=== PATIENT | male | born 1950 | race Caucasian/White ===

== ENCOUNTER 2018-01-11 19:32 | Emergency (ER) | payer OTHER, MEDICARE ==
[2018-01-11] MEDS ORDERED: ASPIRIN 81 MG TABLET, CHEWABLE PO ONE (19:35)
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
--- NOTE | 2018-01-11 20:26 | RADIOLOGY REPORT (SQ) ---
EXAM DESCRIPTION: CHEST SINGLE VIEW COMPLETED DATE/TIME: 01/11/2018 8:12 pm REASON FOR STUDY: chest pain COMPARISON: None. EXAM PARAMETERS: NUMBER OF VIEWS: One view. TECHNIQUE: Single frontal radiographic view of the chest acquired. RADIATION DOSE: NA LIMITATIONS: None. FINDINGS: LUNGS AND PLEURA: No opacities, masses or pneumothorax. No pleural effusion. MEDIASTINUM AND HILAR STRUCTURES: No masses. Contour normal. HEART AND VASCULAR STRUCTURES: Heart normal in size. Normal vasculature. BONES: No acute findings. HARDWARE: None in the chest. OTHER: No other significant finding. IMPRESSION: NO ACUTE RADIOGRAPHIC FINDING IN THE CHEST. TECHNICAL DOCUMENTATION: JOB ID: [id number] [employer] ([employer])- All Rights Reserved Reading location - IP/workstation name: [email or web address]
[2018-01-11 22:11] LABS: ABSOLUTE EOSINOPHILS # (AUTO) 0.4 10^3/uL (0.0-0.6); ABSOLUTE LYMPHOCYTES (AUTO) 2.5 10^3/uL (0.5-4.7); ABSOLUTE MONOCYTES (AUTO) 0.6 10^3/uL (0.1-1.4); ABSOLUTE NEUT (AUTO) 1.4 10^3/uL (1.7-8.2); BASOPHILS % (AUTO) 0.9 % (0-2); EOSINOPHILS % (AUTO) 8.5 % (0-6); HEMATOCRIT 36.9 % (37.9-51.0); HEMOGLOBIN 12.4 g/dL (13.5-17.0); LYMPHOCYTES % (AUTO) 50.9 % (13-45); MEAN CORPUSCULAR HGB CONC 33.7 g/dL (32.0-36.0); MEAN CORPUSCULAR VOLUME 92 fl (80-97); MONOCYTES % (AUTO) 11.4 % (3-13); PLATELET COUNT 199 10^3/uL (150-450); RED BLOOD COUNT 4.01 10^6/uL (4.35-5.55); RED CELL DISTRIBUTION WIDTH 15.8 % (11.5-14.0); SEGMENTED NEUTROPHILS % (AUTO) 28.3 % (42-78); TOTAL CELLS COUNTED % (AUTO) 100 %; WHITE BLOOD COUNT 4.9 10^3/uL (4.0-10.5)
--- NOTE | 2018-01-11 22:11 | EKG REPORT ---
SEVERITY:- NORMAL ECG - SINUS RHYTHM : Confirmed by: Jonathan Wise 11-Jan-2018 22:10:54
[2018-01-11 22:35] LABS: ALANINE AMINOTRANSFERASE 93 U/L (21-72); ALKALINE PHOSPHATASE 118 U/L (38-126); ANION GAP 15 (5-19); ASPARTATE AMINO TRANSFERASE 133 U/L (17-59); BILIRUBIN,DIRECT 0.3 mg/dL (0.0-0.4); BILIRUBIN,TOTAL 0.4 mg/dL (0.2-1.3); BLOOD UREA NITROGEN 5 mg/dL (7-20); CALCIUM 8.8 mg/dL (8.4-10.2); CARBON DIOXIDE 22 mmol/L (22-30); CHLORIDE 107 mmol/L (98-107); CREATINE KINASE 262 U/L (55-170); GLUCOSE 138 mg/dL (75-110); POTASSIUM 3.6 mmol/L (3.6-5.0); SODIUM 143.8 mmol/L (137-145); TOTAL PROTEIN 7.7 g/dL (6.3-8.2)
[2018-01-11 22:43] LABS: CREATINE KINASE MB 5.65 ng/mL (<4.55)
[2018-01-11 22:44] LABS: TROPONIN I < 0.012 ng/mL
[2018-01-12 00:30] VITALS: BP 153/72
== END 2018-01-12 00:45 | disposition home or self-care (01) ==
LOC: EDBD 19:32 → ER 19:32
DX: R07.9 Chest pain, unspecified (principal); R06.02 Shortness of breath; F17.200 Nicotine dependence, unspecified, uncomplicated; I25.10 Atherosclerotic heart disease of native coronary artery without angina pectoris; I25.2 Old myocardial infarction
CPT/HCPCS: 36415; 71045; 80053; 82550; 82553; 84484; 85025; 93005; 93010; 99285

== ENCOUNTER 2018-10-03 19:06 | Emergency (ER) | payer OTHER, MEDICARE ==
[2018-10-03 19:18] VITALS: BP 150/82
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
[2018-10-03 20:11] LABS: ABSOLUTE EOSINOPHILS # (AUTO) 1.8 10^3/uL (0.0-0.6); ABSOLUTE LYMPHOCYTES (AUTO) 3.4 10^3/uL (0.5-4.7); ABSOLUTE MONOCYTES (AUTO) 0.6 10^3/uL (0.1-1.4); ABSOLUTE NEUT (AUTO) 1.9 10^3/uL (1.7-8.2); BASOPHILS % (AUTO) 0.6 % (0-2); EOSINOPHILS % (AUTO) 22.5 % (0-6); HEMOGLOBIN 13.5 g/dL (13.5-17.0); LYMPHOCYTES % (AUTO) 44.1 % (13-45); MEAN CORPUSCULAR HEMOGLOBIN 31.8 pg (27.0-33.4); MEAN CORPUSCULAR HGB CONC 33.8 g/dL (32.0-36.0); MEAN CORPUSCULAR VOLUME 94 fl (80-97); MONOCYTES % (AUTO) 8.3 % (3-13); PLATELET COUNT 301 10^3/uL (150-450); RED BLOOD COUNT 4.26 10^6/uL (4.35-5.55); RED CELL DISTRIBUTION WIDTH 15.4 % (11.5-14.0); SEGMENTED NEUTROPHILS % (AUTO) 24.5 % (42-78); TOTAL CELLS COUNTED % (AUTO) 100 %; WHITE BLOOD COUNT 7.8 10^3/uL (4.0-10.5)
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
[2018-10-03 20:26] LABS: ALANINE AMINOTRANSFERASE 72 U/L (21-72); ALBUMIN 4.5 g/dL (3.5-5.0); ALKALINE PHOSPHATASE 87 U/L (38-126); ANION GAP 11 (5-19); ASPARTATE AMINO TRANSFERASE 97 U/L (17-59); BILIRUBIN,DIRECT 0.2 mg/dL (0.0-0.4); BILIRUBIN,TOTAL 0.2 mg/dL (0.2-1.3); BLOOD UREA NITROGEN 6 mg/dL (7-20); CALCIUM 9.4 mg/dL (8.4-10.2); CARBON DIOXIDE 28 mmol/L (22-30); CHLORIDE 97 mmol/L (98-107); GLUCOSE 99 mg/dL (75-110); POTASSIUM 4.7 mmol/L (3.6-5.0); SODIUM 135.5 mmol/L (137-145); TOTAL PROTEIN 8.1 g/dL (6.3-8.2)
== END 2018-10-03 20:40 | disposition left against medical advice (07) ==
LOC: ER 19:06
DX: S12.090D Other displaced fracture of first cervical vertebra, subsequent encounter for fracture with routine healing (principal); Y04.8XXD Assault by other bodily force, subsequent encounter; F17.200 Nicotine dependence, unspecified, uncomplicated; J44.9 Chronic obstructive pulmonary disease, unspecified; I25.10 Atherosclerotic heart disease of native coronary artery without angina pectoris; I48.91 Unspecified atrial fibrillation; I50.9 Heart failure, unspecified; I11.0 Hypertensive heart disease with heart failure; I25.2 Old myocardial infarction
CPT/HCPCS: 99281; 36415; 85025; 80053; 72125; L0172

== ENCOUNTER 2018-10-16 22:45 | Emergency (ER) | payer OTHER, MEDICARE ==
--- NOTE | 2018-10-16 23:41 | ER Document Report ---
ED General - General Chief Complaint: Neck Pain >24hrs old Stated Complaint: NECK PAIN Time Seen by Provider: 10/16/18 23:28 Notes: Patient is a 67-year-old male who presents with neck pain. Patient was seen here approximately week ago and diagnosed with a C2 dens fracture. He eventually left AMA and did not want any further treatment. He has since returned saying that his neck still hurts and is having pain going into his upper back he has intermittent numbness and tingling into the left arm. He denies any new injuries or falls. He does drink alcohol on a daily basis. He has no other complaints at this time. No difficulty ambulating or walking. Patient actually has been walking since he got here without difficulty. TRAVEL OUTSIDE OF THE [place] IN LAST 30 DAYS: No - Related Data Allergies/Adverse Reactions: No Known Allergies Allergy (Verified 10/03/18 19:12) Past Medical History - Social History Smoking Status: Current Every Day Smoker Frequency of alcohol use: Heavy Drug Abuse: None Family History: Reviewed & Not Pertinent Patient has suicidal ideation: No Patient has homicidal ideation: No - Past Medical History Cardiac Medical History: Reports: Hx Atrial Fibrillation, Hx Congestive Heart Failure, Hx Coronary Artery Disease, Hx Heart Attack - x2, Hx Hypertension Pulmonary Medical History: Reports: Hx COPD, Hx Pneumonia Renal/ Medical History: Denies: Hx Peritoneal Dialysis GI Medical History: Reports: Hx Gastroesophageal Reflux Disease, Hx Ulcer Psychiatric Medical History: Denies: Hx Depression Past Surgical History: Reports: Hx Abdominal Surgery, Hx Cardiac Catheterization - Immunizations Immunizations up to date: Yes Hx Pneumococcal Vaccination: 05/24/14 Review of Systems - Review of Systems Notes: My Normal Review Basic REVIEW OF SYSTEMS: CONSTITUTIONAL : Denies fever, chills, or sweats. Denies recent illness. EENT: Denies eye, ear, throat, or mouth pain or symptoms. Denies nasal or sinus congestion. RESPIRATORY: Denies cough, cold, or chest congestion. Denies shortness of breath, difficulty breathing, or wheezing. GASTROINTESTINAL: Denies abdominal pain. Denies nausea, vomiting, or diarrhea. MUSCULOSKELETAL: Neck and upper back pain SKIN: Denies rash or skin lesions. NEUROLOGICAL: Denies altered mental status or loss of consciousness. Denies headache. Intermittent left arm weakness and numbness.. Denies problems with gait or speech. Denies sensory or motor loss. ALL OTHER SYSTEMS REVIEWED AND NEGATIVE. Physical Exam - Vital signs Vitals: Temp Pulse Resp BP Pulse Ox 98.2 F 76 20 135/80 H 96 10/16/18 23:07 10/16/18 23:07 10/16/18 23:07 10/16/18 23:07 10/16/18 23:07 - Notes Notes: General Appearance: Well nourished, alert, cooperative, no acute distress, no obvious discomfort. Patient admits to nursing staff that he drank alcohol earlier today however currently he is walking with normal gait, is not slurring his words, he is answering all questions appropriately. Vitals: reviewed, See vital signs table. Head: no swelling or tenderness to the head Eyes: PERRL, EOMI, Conjuctiva clear Mouth: No decreasd moisture Throat: No tonsillar inflammation, No airway obstruction, No lymphadenopathy Neck: Pain palpation over midline cervical spine. No obvious step-offs or deformities. Back: Pain to palpation into the upper thoracic spine. Remainder of thoracic and lumbar spine are nontender. Lungs: No wheezing, No rales, No rhonci, No accessory muscle use, good air exchange bilaterally. Heart: Normal rate, Regular rythm, No murmur, no rub Extremities: strength 5/5 in all extremities, good pulses in all extremities, no swelling or tenderness in the extremities, no edema. Skin: warm, dry, appropriate color, no rash Neuro: speech clear, oriented x 3, normal affect, responds appropriately to questions. Cranial nerves II through XII are intact. Good distal sensation in all extremities. Patient has normal gait. Good strength in lower and upper extremities. Course - Re-evaluation Re-evalutation: 10/17/18 01:39 Patient does continue to have unstable cervical spine fracture and therefore do es need transfer to us so that has neurosurgery. Placed a aspirin collar and the patient as soon as I evaluated him. I called the trauma line at [facility]. They initially said that they want to speak with the neurosurgeon to see if they take him on their service. I therefore tried to speak with the neurosurgeon however there is a new policy where the neurosurgeon is not called unless the patient has a immediate life-threatening injury that needs immediate surgery. I informed him that the patient does have an unstable cervical spine fracture which will need surgery. I am not convinced that they will do surgery immediately tonight. They therefore were unsure if they should wake the neurosurgeon and decide to call back to the trauma team. They therefore contacted trauma surgery and called us back and informed us that trauma surgery has accepted the patient. 10/17/18 03:46 I did reevaluate the patient when transport is at bedside. Patient continued to do well. No focal neurologic deficits at this time. He not have any new neurologic deficits. [place] collar was on him in appropriate position. Patient is stable for transport. Dictation of this chart was performed using voice recognition software; therefore, there may be some unintended grammatical errors. - Vital Signs Vital signs: Temp Pulse Resp BP Pulse Ox 98.3 F 82 16 94/52 L 94 10/17/18 03:33 10/17/18 03:33 10/17/18 03:33 10/17/18 03:33 10/17/18 03:33 Discharge - Discharge Clinical Impression: Cervical spine fracture Qualifiers: Encounter type: initial encounter Cervical vertebra fracture level: C1 Fracture type: closed Fracture morphology: unspecified fracture morphology Fracture alignment: nondisplaced Qualified Code(s): S12.001A - Unspecified nondisplaced fracture of first cervical vertebra, initial encounter for closed fracture Condition: Stable Disposition: [facility]
--- NOTE | 2018-10-17 00:35 | RADIOLOGY REPORT (SQ) ---
EXAM DESCRIPTION: CT CERVICAL SPINE WITHOUT IV CONTRAST COMPLETED DATE/TME: 10/16/2018 23:38 CLINICAL HISTORY: 67 years, Male, trauma COMPARISON: Prior CT from 10/03/2018 TECHNIQUE: Noncontrast CT of the cervical spine was performed. Coronal and sagittal reformations were created. Images stored on PACS. All CT scanners at this facility use dose modulation, iterative reconstruction, and/or weight based dosing when appropriate to reduce radiation dose to as low as reasonably achievable (ALARA). [facility]: Dose Right [facility]: CareDose [facility]: Dose Right [facility]: Teradose 4D [facility]: [place] [employer] LIMITATIONS: None. FINDINGS: Limited evaluation of brain parenchyma reveals no suspicious finding. Occipital condyles are normal. The right lateral masses of C1 appears slightly laterally displaced relative to the C2 lateral mass. This is as a result of a comminuted fracture involving the anterior arch of C1. This appears similar in configuration to the previous examination dated 10/03/2018. In addition, there is a transversely oriented fracture through the base of the dens with associated slight superior displacement of the dens fracture fragment. Craniocervical alignment is otherwise maintained. Again visualized is grade 1 anterolisthesis of C3 upon C4 and C4 upon C5, unchanged. Superimposed mild/moderate multilevel cervical spondylosis is evident, designated by multilevel intervertebral disc space narrowing and facet arthropathy. This appears similar to the previous exam dated 10/03/2018. There is also mild asymmetric widening of the left C4-C5 facet joint, also similar to the previous examination dated 10/03/2018. There is partially imaged severe compression deformity involving the T3 vertebral body which will be discussed on the dedicated CT thoracic spine report. No additional fractures are identified. Limited evaluation of the lung apices reveals mild upper zone predominant emphysematous change. Paravertebral soft tissues show no suspicious abnormality. IMPRESSION: Unchanged appearance of transversely oriented fracture involving the base of the odontoid (type II odontoid fracture) with additional comminuted fracture involving the anterior arch of C1. Unchanged asymmetric widening of the left C4-C5 facet joint, raising the possibility of ligamentous injury at this location. Mild to moderate multilevel cervical spondylosis with grade 1 anterolisthesis of C3 upon C4 and C4 upon C5. TECHNICAL DOCUMENTATION: Quality ID # 436: Final reports with documentation of one or more dose reduction techniques (e.g., Automated exposure control, adjustment of the mA and/or kV according to patient size, use of iterative reconstruction technique) copyright 2010 [employer]- All Rights Reserved
--- NOTE | 2018-10-17 00:35 | RADIOLOGY REPORT (SQ) ---
EXAM DESCRIPTION: CT THORACIC SPINE WITHOUT IV CONTRAST COMPLETED DATE/TME: 10/16/2018 23:38 CLINICAL HISTORY: 67 years, Male, trauma COMPARISON: None. TECHNIQUE: Axial CT images of the thoracic spine were obtained without contrast. Sagittal and coronal reformats were performed. [facility] [id number] Images stored on PACS. All CT scanners at this facility use dose modulation, iterative reconstruction, and/or weight based dosing when appropriate to reduce radiation dose to as low as reasonably achievable (ALARA). [facility]: Dose Right [facility]: CareDose [facility]: Dose Right [facility]: Teradose 4D [facility]: [employer] LIMITATIONS: None. FINDINGS: There is a severe and chronic compression deformity of T3 with kyphosis at this level. There is approximately 3 mm of retropulsion at T3. The remainder of the vertebral heights are maintained. There is no acute fracture or subluxation. The prevertebral soft tissues are normal. Old healed left-sided rib fractures are noted. There are atherosclerotic calcifications of the aorta without evidence of aneurysm. The visualized portions of the lungs are clear. IMPRESSION: No acute fracture or subluxation involving the thoracic spine. Chronic appearing severe compression fracture of T3 with approximately 3 mm of retropulsion with kyphosis at this level. TECHNICAL DOCUMENTATION: Quality ID # 436: Final reports with documentation of one or more dose reduction techniques (e.g., Automated exposure control, adjustment of the mA and/or kV according to patient size, use of iterative reconstruction technique) copyright 2010 [employer]- All Rights Reserved
[2018-10-17] MEDS ORDERED: NICOTINE 21 MG/24 HR PATCH.TD24 TD ONE (01:13)
[2018-10-17 03:34] VITALS: BP 94/52
== END 2018-10-17 03:47 | disposition short-term general hospital (02) ==
LOC: ER 22:45
DX: S12.001A Unspecified nondisplaced fracture of first cervical vertebra, initial encounter for closed fracture (principal); R20.0 Anesthesia of skin; F17.200 Nicotine dependence, unspecified, uncomplicated; X58.XXXA Exposure to other specified factors, initial encounter; I48.91 Unspecified atrial fibrillation; J44.9 Chronic obstructive pulmonary disease, unspecified; I50.9 Heart failure, unspecified; I11.0 Hypertensive heart disease with heart failure; I25.2 Old myocardial infarction
CPT/HCPCS: 72125; 99284; 72128; L0172

== ENCOUNTER 2018-10-26 17:11 | Emergency (ER) | payer OTHER, MEDICARE ==
[2018-10-26] MEDS ORDERED: ASPIRIN 81 MG TABLET, CHEWABLE PO ONE (17:21)
[2018-10-26 17:58] LABS: ABSOLUTE BASOPHILS # (AUTO) 0.1 10^3/uL (0.0-0.2); ABSOLUTE EOSINOPHILS # (AUTO) 1.1 10^3/uL (0.0-0.6); ABSOLUTE LYMPHOCYTES (AUTO) 2.2 10^3/uL (0.5-4.7); ABSOLUTE MONOCYTES (AUTO) 0.7 10^3/uL (0.1-1.4); ABSOLUTE NEUT (AUTO) 2.1 10^3/uL (1.7-8.2); BASOPHILS % (AUTO) 0.8 % (0-2); HEMATOCRIT 36.6 % (37.9-51.0); HEMOGLOBIN 12.5 g/dL (13.5-17.0); LYMPHOCYTES % (AUTO) 35.1 % (13-45); MEAN CORPUSCULAR HEMOGLOBIN 32.7 pg (27.0-33.4); MEAN CORPUSCULAR HGB CONC 34.1 g/dL (32.0-36.0); MEAN CORPUSCULAR VOLUME 96 fl (80-97); MONOCYTES % (AUTO) 12.1 % (3-13); PLATELET COUNT 245 10^3/uL (150-450); RED BLOOD COUNT 3.81 10^6/uL (4.35-5.55); RED CELL DISTRIBUTION WIDTH 14.7 % (11.5-14.0); TOTAL CELLS COUNTED % (AUTO) 100 %; WHITE BLOOD COUNT 6.2 10^3/uL (4.0-10.5)
--- NOTE | 2018-10-26 18:01 | RADIOLOGY REPORT (SQ) ---
EXAM DESCRIPTION: CHEST SINGLE VIEW COMPLETED DATE/TIME: 10/26/2018 5:31 pm REASON FOR STUDY: bed 17 cp COMPARISON: 01/11/2018 EXAM PARAMETERS: NUMBER OF VIEWS: One view. TECHNIQUE: Single frontal radiographic view of the chest acquired. RADIATION DOSE: NA LIMITATIONS: None. FINDINGS: LUNGS AND PLEURA: No opacities, masses or pneumothorax. No pleural effusion. MEDIASTINUM AND HILAR STRUCTURES: No masses. Contour normal. HEART AND VASCULAR STRUCTURES: Heart normal in size. Normal vasculature. BONES: No acute findings. HARDWARE: None in the chest. OTHER: Possible subdiaphragmatic air on the right. More likely colonic interposition. . IMPRESSION: Possible free intraperitoneal air. COMMENT: Pertinent findings on the imaging study reported as a CRITICAL RESULT to ER PROVIDER at17 :54 on 10/26/2018. Category of Critical Result: Possible free air RECOMMENDATIONS: Right side up decubitus abdominal film. Or CT scan if that is in the workup. TECHNICAL DOCUMENTATION: JOB ID: [id number] [employer]- All Rights Reserved Reading location - IP/workstation name: [email or web address]
--- NOTE | 2018-10-26 18:08 | ER Document Report ---
ED General - General Chief Complaint: Chest Pain Stated Complaint: CHEST PAIN Time Seen by Provider: 10/26/18 18:00 Mode of Arrival: Medic Information source: Patient, Emergency Med Personnel, [facility] Records Notes: 67-year-old male presents with complaint of left-sided chest pain that started 1 hour prior to arrival while at rest. Patient describes the pain as sharp, stabbing and not associated with nausea, diaphoresis, dizziness or shortness of breath. Reports that he has been noncompliant with his medications because "I just do not feel like taking my meds". Patient does admit to drinking 240 ounce beers today. States that he usually drinks approximately 5 of these beers daily. Radiology called after chest x-ray showed possible free air. Patient denies fever, chills, abdominal pain, nausea, vomiting. TRAVEL OUTSIDE OF THE [place] IN LAST 30 DAYS: No - HPI Onset: Just prior to arrival Onset/Duration: Sudden Quality of pain: Sharp Severity: Mild Associated symptoms: Chest pain. denies: Body/muscle aches, Nonproductive cough, Productive cough, Headache, Nausea, Vomiting, Shortness of breath, Weakness Exacerbated by: Denies Relieved by: Denies Similar symptoms previously: Yes Recently seen / treated by doctor: No - Related Data Allergies/Adverse Reactions: No Known Allergies Allergy (Verified 10/03/18 19:12) Past Medical History - General Information source: Patient - Social History Smoking Status: Current Every Day Smoker Cigarette use (# per day): Yes - 10 Chew tobacco use (# tins/day): No Smoking Education Provided: Yes - Smoking cessation counseling was provided for 4 minutes at the bedside Frequency of alcohol use: Heavy Drug Abuse: Cocaine, Marijuana Lives with: Family Family History: Reviewed & Not Pertinent Patient has suicidal ideation: No Patient has homicidal ideation: No - Past Medical History Cardiac Medical History: Reports: Hx Atrial Fibrillation, Hx Congestive Heart Failure, Hx Coronary Artery Disease, Hx Heart Attack - x2, Hx Hypertension Pulmonary Medical History: Reports: Hx COPD, Hx Pneumonia Renal/ Medical History: Denies: Hx Peritoneal Dialysis GI Medical History: Reports: Hx Gastroesophageal Reflux Disease, Hx Ulcer Psychiatric Medical History: Denies: Hx Depression Past Surgical History: Reports: Hx Abdominal Surgery, Hx Cardiac Catheterization - Immunizations Immunizations up to date: Yes Hx Pneumococcal Vaccination: 05/24/14 Review of Systems - Review of Systems Notes: REVIEW OF SYSTEMS: CONSTITUTIONAL : Denies fever, chills, or sweats. Denies recent illness. Denies weight loss, recent hospitalizations. EENT: Denies visual changes, eye pain. Denies sore throat, oral lesions, difficulty swallowing. CARDIOVASCULAR: + chest pain. Denies palpitations. Denies lower extremity e maddie. RESPIRATORY: Denies cough. Denies shortness of breath, wheezing. GASTROINTESTINAL: Denies abdominal pain or distention. Denies nausea, vomiting, or diarrhea. Denies blood in vomitus, stools, or per rectum. Denies black, tarry stools. Denies constipation. GENITOURINARY: Denies difficulty urinating, painful urination, frequency, blood in urine, testicular pain or penile discharge. MUSCULOSKELETAL: Denies back or neck pain or stiffness. Denies joint pain or swelling. SKIN: Denies rash, lesions or sores. HEMATOLOGIC : Denies easy bruising or bleeding. LYMPHATIC: Denies swollen glands. NEUROLOGICAL: Denies confusion or altered mental status. Denies loss of consciousness. Denies dizziness or lightheadedness. Denies headache. Denies weakness or paralysis. Denies problems difficulty with ambulation, slurred speech. Denies sensory loss, numbness, or tingling. Denies seizures. PSYCHIATRIC: Denies anxiety or stress. Denies depression, suicidal ideation, or Physical Exam - Vital signs Vitals: Resp 17 10/26/18 17:30 Course - Re-evaluation Re-evalutation: 10/26/18 21:15 Laboratory 10/26/18 10/26/18 10/26/18 17:38 17:38 17:38 WBC 6.2 RBC 3.81 L Hgb 12.5 L Hct 36.6 L MCV 96 MCH 32.7 MCHC 34.1 RDW 14.7 H Plt Count 245 Seg Neutrophils % 34.0 L Lymphocytes % 35.1 Monocytes % 12.1 Eosinophils % 18.0 H Basophils % 0.8 Absolute Neutrophils 2.1 Absolute Lymphocytes 2.2 Absolute Monocytes 0.7 Absolute Eosinophils 1.1 H Absolute Basophils 0.1 Sodium 135.9 L Potassium 4.1 Chloride 102 Carbon Dioxide 20 L Anion Gap 14 BUN 5 L Creatinine 0.64 Est GFR ( Amer) > 60 Est GFR (Non-Af Amer) > 60 Glucose 107 Lactic Acid Calcium 9.0 Total Bilirubin 0.3 Direct Bilirubin 0.2 Neonat Total Bilirubin Not Reportable Neonat Direct Bilirubin Not Reportable Neonat Indirect Bili Not Reportable AST 75 H ALT 63 Alkaline Phosphatase 94 Creatine Kinase 152 CK-MB (CK-2) 4.95 H Troponin I < 0.012 NT-Pro-B Natriuret Pep Total Protein 7.5 Albumin 4.2 Lipase Serum Alcohol 10/26/18 10/26/18 10/26/18 17:38 17:38 18:40 WBC RBC Hgb Hct MCV MCH MCHC RDW Plt Count Seg Neutrophils % Lymphocytes % Monocytes % Eosinophils % Basophils % Absolute Neutrophils Absolute Lymphocytes Absolute Monocytes Absolute Eosinophils Absolute Basophils Sodium Potassium Chloride Carbon Dioxide Anion Gap BUN Creatinine Est GFR ( Amer) Est GFR (Non-Af Amer) Glucose Lactic Acid 1.3 Calcium Total Bilirubin Direct Bilirubin Neonat Total Bilirubin Neonat Direct Bilirubin Neonat Indirect Bili AST ALT Alkaline Phosphatase Creatine Kinase CK-MB (CK-2) Troponin I NT-Pro-B Natriuret Pep 201 Total Protein Albumin Lipase 297.5 Serum Alcohol 206 10/26/18 20:20 WBC RBC Hgb Hct MCV MCH MCHC RDW Plt Count Seg Neutrophils % Lymphocytes % Monocytes % Eosinophils % Basophils % Absolute Neutrophils Absolute Lymphocytes Absolute Monocytes Absolute Eosinophils Absolute Basophils Sodium Potassium Chloride Carbon Dioxide Anion Gap BUN Creatinine Est GFR ( Amer) Est GFR (Non-Af Amer) Glucose Lactic Acid Calcium Total Bilirubin Direct Bilirubin Neonat Total Bilirubin Neonat Direct Bilirubin Neonat Indirect Bili AST ALT Alkaline Phosphatase Creatine Kinase CK-MB (CK-2) Troponin I < 0.012 NT-Pro-B Natriuret Pep Total Protein Albumin Lipase Serum Alcohol Chest X-Ray 10/26/18 17:21 IMPRESSION: Possible free intraperitoneal air. Abdomen/Pelvis CT 10/26/18 17:55 IMPRESSION: There are no acute findings in the chest. IMPRESSION: There is significant gaseous distention of the stomach. There is large amount of bowel gas. There is no free air. There is cholelithiasis. No acute finding in the abdomen or pelvis. Chest CT 10/26/18 18:02 IMPRESSION: There are no acute findings in the chest. IMPRESSION: There is significant gaseous distention of the stomach. There is large amount of bowel gas. There is no free air. There is cholelithiasis. No acute finding in the abdomen or pelvis. Temp Pulse Resp BP Pulse Ox 98.4 F 15 158/87 H 98 10/26/18 20:34 10/26/18 21:01 10/26/18 21:01 10/26/18 21:01 10/26/18 21:46 67-year-old male presents with left-sided chest pain that occurred just prior to arrival. Patient is obviously intoxicated. Vital signs reviewed and patient is hypertensive but afebrile and not hypoxic. He does not appear toxic or de hydrated. He is in no acute distress. Chest x-ray was obtained and radiologist contacted us to inform us that there is possibly free air. Abdominal exam is benign. CT of the chest and abdomen were obtained and showed gaseous distention, cholelithiasis and no free air. On reevaluation patient is resting comfortably. CBC, CMP, cardiac enzymes including delta troponin are within normal limits. Discussed findings with the patient who has an alcohol level of 206. Patient will be discharged after he ambulates, is able to tolerate p.o. Patient was evaluated and treated as appropriate for the patient's presenting symptoms and complaint, with consideration of any critical or life threatening conditions that may be associated with their obtained history and exam as noted above. All results were discussed with patient . Patient provided the opportunity to ask questions, and express concerns. Patient was educated on treatments based on their presumed diagnosis as noted above. At this time we will discharge the patient with return precautions and follow-up recommendations. Verbal discharge instructions given a the bedside. Medication warnings reviewed. Patient is in agreement with this plan and has verbalized understanding of return precautions. After careful consideration I feel that that patient can be safely discharged from the emergency department, they were advised to followup with a primary care physician in 2-3 days. Dictation on this chart was performed using voice recognition software and may result in unintended grammatical, spelling, syntax or errors. - Vital Signs Vital signs: Temp Pulse Resp BP Pulse Ox 98.4 F 15 158/87 H 98 10/26/18 20:34 10/26/18 21:01 10/26/18 21:01 10/26/18 21:01 - Laboratory Result Diagrams: 10/26/18 17:38 10/26/18 17:38 Laboratory results interpreted by me: 10/26/18 10/26/18 10/26/18 17:38 17:38 17:38 RBC 3.81 L Hgb 12.5 L Hct 36.6 L RDW 14.7 H Seg Neutrophils % 34.0 L Eosinophils % 18.0 H Absolute Eosinophils 1.1 H Sodium 135.9 L Carbon Dioxide 20 L BUN 5 L AST 75 H CK-MB (CK-2) 4.95 H - Diagnostic Test Radiology reviewed: Image reviewed, Reports reviewed - EKG Interpretation by Me EKG shows normal: Sinus rhythm Rate: Normal Rhythm: NSR When compared to previous EKG there are: No significant change Discharge - Discharge Clinical Impression: Alcoholism, Asymptomatic gallstones, History of cervical fracture Chest pain Qualifiers: Chest pain type: unspecified Qualified Code(s): R07.9 - Chest pain, unspecified Condition: Good Disposition: HOME, SELF-CARE Instructions: Acute Alcohol Intoxication ([facility]), Chest Pain of Unclear Cause ([facility]), Gallbladder Disease ([facility]) Additional Instructions: You were seen today for chest pain. The exact cause of your pain is unclear. However, based on your cardiac enzyme testing, chest x-ray, and EKG it does not appear that it is from an immediately life-threatening cause at this time. Although your testing here is normal is critical that you follow-up with your primary care physician for continued evaluation of this chest pain and possible stress testing. I recommended you see your physician within the next 24-48 hours to be evaluated for consideration of a stress test. Please return to emergency department immediately if you have worsening of your chest pain, shortness of breath, vomiting, become unable to exert yourself due to pain or difficulty breathing, you pass out, or have any pain that radiates into your arms, jaw, or back. Please also return if you have any additional symptoms that are concerning to you. Forms: Elevated Blood Pressure
[2018-10-26 18:15] LABS: ALANINE AMINOTRANSFERASE 63 U/L (21-72); ALBUMIN 4.2 g/dL (3.5-5.0); ALKALINE PHOSPHATASE 94 U/L (38-126); ANION GAP 14 (5-19); ASPARTATE AMINO TRANSFERASE 75 U/L (17-59); BILIRUBIN,DIRECT 0.2 mg/dL (0.0-0.4); BILIRUBIN,TOTAL 0.3 mg/dL (0.2-1.3); BLOOD UREA NITROGEN 5 mg/dL (7-20); CARBON DIOXIDE 20 mmol/L (22-30); CHLORIDE 102 mmol/L (98-107); CREATINE KINASE 152 U/L (55-170); GLUCOSE 107 mg/dL (75-110); POTASSIUM 4.1 mmol/L (3.6-5.0); SODIUM 135.9 mmol/L (137-145); TOTAL PROTEIN 7.5 g/dL (6.3-8.2)
--- NOTE | 2018-10-26 18:18 | EKG REPORT ---
SEVERITY:- NORMAL ECG - SINUS RHYTHM : Confirmed by: Nader Schaefer MD 26-Oct-2018 18:17:56
[2018-10-26 18:27] LABS: CREATINE KINASE MB 4.95 ng/mL (<4.55); TROPONIN I < 0.012 ng/mL
[2018-10-26 18:36] LABS: LIPASE 297.5 U/L (23-300)
--- NOTE | 2018-10-26 18:53 | RADIOLOGY REPORT (SQ) ---
EXAM DESCRIPTION: CT ABD/PELVIS WITH IV ONLY; CT CHEST WITH COMPLETED DATE/TIME: 10/26/2018 6:23 pm REASON FOR STUDY: ? free air; chest pain CONTRAST TYPE AND DOSE: contrast/concentration: Isovue 350.00 mg/ml; Total Contrast Delivered: 100.0 ml; Total Saline Delivered: 72.0 ml RENAL FUNCTION: Testing waived by the emergency room physician COMPARISON: Chest x-ray 10/26/2018 TECHNIQUE: CT scan of the chest performed using helical scanning technique with dynamic intravenous contrast injection. Images reviewed with lung, soft tissue and bone windows. Reconstructed coronal a nd sagittal MPR images reviewed. All images stored on PACS. All CT scanners at this facility use dose modulation, iterative reconstruction, and/or weight based d osing when appropriate to reduce radiation dose to as low as reasonably achievable (ALARA). [facility]: Dose Right [facility]: CareDose [facility]: Dose Right [facility]: Teradose 4D [facility]: [employer] RADIATION DOSE: CT Rad equipment meets quality standard of care and radiation dose reduction techniq ues were employed. CTDIvol: 5.8 - 7.9 mGy. DLP: 846 mGy-cm. . LIMITATIONS: None. FINDINGS: AXILLAE: No adenopathy. CHEST WALL: No masses. No subcutaneous air. LUNGS: No nodules or masses. No pneumothorax. No infiltrates. PLEURA: No effusions. No calcifications. THYROID: No masses or significant asymmetry. HILAR AND MEDIASTINAL STRUCTURES: No identified masses or abnormal nodes. AORTA AND GREAT VESSELS: No aneurysm. No dissection. PULMONARY ARTERIES: No identified pulmonary emboli. Study not optimized for the pulmonary arteries. HEART: No pericardial effusion. HARDWARE AND LIFELINES: None. BONES: Severe compression changes at T3 are not acute. OTHER: No other significant finding. IMPRESSION: There are no acute findings in the chest. COMPARISON: None. RADIATION DOSE: CT Rad equipment meets quality standard of care and radiation dose reduction techniq ues were employed. CTDIvol: 5.8 - 7.9 mGy. DLP: 846 mGy-cm. mGy. TECHNIQUE: CT scan of the abdomen and pelvis performed with intravenous and oral contrast using bee rebekah scanning technique with dynamic intravenous contrast injection. Images reviewed with lung, soft tissue and bone windows. Reconstructed coronal and sagittal MPR images reviewed. Delayed images for evaluation of the urinary system also acquired and evaluated. All images stored on PACS. All CT scanners at this facility use dose modulation, iterative reconstruction, and/or weight based d osing when appropriate to reduce radiation dose to as low as reasonably achievable (ALARA). [facility]: Dose Right [facility]: SureCare [facility]: Dose Right [facility]: Teradose 4D [facility]: [employer] FINDINGS: LIVER: Normal size. No masses. No dilated ducts. SPLEEN: Normal size. No focal lesions. PANCREAS: No masses. No significant calcifications. No adjacent inflammation or peripancreatic flui d collections. Pancreatic duct not dilated. GALLBLADDER: Contracted gallbladder with multiple small stones. ADRENAL GLANDS: No significant masses or asymmetry. RIGHT KIDNEY AND URETER: No solid masses. No significant calcifications. No hydronephrosis or hyd roureter. LEFT KIDNEY AND URETER: No solid masses. No significant calcifications. No hydronephrosis or hydr oureter. AORTA AND VESSELS: No aneurysm. No dissection. Considerable atherosclerosis including atheroscleros is involving the superior mesenteric artery. RETROPERITONEUM: No retroperitoneal adenopathy, hemorrhage or masses. LARGE AND SMALL BOWEL: Gaseous distention of the stomach. There is large amount of bowel gas present . No obvious bowel mass. APPENDIX: Not identified. ABDOMINAL WALL: No hernia or masses. PERITONEAL CAVITY: No free air. No free fluid. No peritoneal implants or masses. PELVIS: No mass or free fluid. Normal bladder. BONES: Posterior rods at L4-5. No acute osseous finding. OTHER: No other significant finding. IMPRESSION: There is significant gaseous distention of the stomach. There is large amount of bowel gas. There is no free air. There is cholelithiasis. No acute finding in the abdomen or pelvis. TECHNICAL DOCUMENTATION: JOB ID: [id number] Quality ID # [id number]: Final reports with documentation of one or more dose reduction techniques (e.g., Au tomated exposure control, adjustment of the mA and/or kV according to patient size, use of iterative reconstruction technique) 2010 [employer]- All Rights Reserved Reading location - IP/workstation name: [email or web address]
--- NOTE | 2018-10-26 18:53 | RADIOLOGY REPORT (SQ) ---
EXAM DESCRIPTION: CT ABD/PELVIS WITH IV ONLY; CT CHEST WITH COMPLETED DATE/TIME: 10/26/2018 6:23 pm REASON FOR STUDY: ? free air; chest pain CONTRAST TYPE AND DOSE: contrast/concentration: Isovue 350.00 mg/ml; Total Contrast Delivered: 100.0 ml; Total Saline Delivered: 72.0 ml RENAL FUNCTION: Testing waived by the emergency room physician COMPARISON: Chest x-ray 10/26/2018 TECHNIQUE: CT scan of the chest performed using helical scanning technique with dynamic intravenous contrast injection. Images reviewed with lung, soft tissue and bone windows. Reconstructed coronal a nd sagittal MPR images reviewed. All images stored on PACS. All CT scanners at this facility use dose modulation, iterative reconstruction, and/or weight based d osing when appropriate to reduce radiation dose to as low as reasonably achievable (ALARA). [facility]: Dose Right [facility]: CareDose [facility]: Dose Right [facility]: Teradose 4D [facility]: [employer] RADIATION DOSE: CT Rad equipment meets quality standard of care and radiation dose reduction techniq ues were employed. CTDIvol: 5.8 - 7.9 mGy. DLP: 846 mGy-cm. . LIMITATIONS: None. FINDINGS: AXILLAE: No adenopathy. CHEST WALL: No masses. No subcutaneous air. LUNGS: No nodules or masses. No pneumothorax. No infiltrates. PLEURA: No effusions. No calcifications. THYROID: No masses or significant asymmetry. HILAR AND MEDIASTINAL STRUCTURES: No identified masses or abnormal nodes. AORTA AND GREAT VESSELS: No aneurysm. No dissection. PULMONARY ARTERIES: No identified pulmonary emboli. Study not optimized for the pulmonary arteries. HEART: No pericardial effusion. HARDWARE AND LIFELINES: None. BONES: Severe compression changes at T3 are not acute. OTHER: No other significant finding. IMPRESSION: There are no acute findings in the chest. COMPARISON: None. RADIATION DOSE: CT Rad equipment meets quality standard of care and radiation dose reduction techniq ues were employed. CTDIvol: 5.8 - 7.9 mGy. DLP: 846 mGy-cm. mGy. TECHNIQUE: CT scan of the abdomen and pelvis performed with intravenous and oral contrast using bee rebekah scanning technique with dynamic intravenous contrast injection. Images reviewed with lung, soft tissue and bone windows. Reconstructed coronal and sagittal MPR images reviewed. Delayed images for evaluation of the urinary system also acquired and evaluated. All images stored on PACS. All CT scanners at this facility use dose modulation, iterative reconstruction, and/or weight based d osing when appropriate to reduce radiation dose to as low as reasonably achievable (ALARA). [facility]: Dose Right [facility]: SureCare [facility]: Dose Right [facility]: Teradose 4D [facility]: [employer] FINDINGS: LIVER: Normal size. No masses. No dilated ducts. SPLEEN: Normal size. No focal lesions. PANCREAS: No masses. No significant calcifications. No adjacent inflammation or peripancreatic flui d collections. Pancreatic duct not dilated. GALLBLADDER: Contracted gallbladder with multiple small stones. ADRENAL GLANDS: No significant masses or asymmetry. RIGHT KIDNEY AND URETER: No solid masses. No significant calcifications. No hydronephrosis or hyd roureter. LEFT KIDNEY AND URETER: No solid masses. No significant calcifications. No hydronephrosis or hydr oureter. AORTA AND VESSELS: No aneurysm. No dissection. Considerable atherosclerosis including atheroscleros is involving the superior mesenteric artery. RETROPERITONEUM: No retroperitoneal adenopathy, hemorrhage or masses. LARGE AND SMALL BOWEL: Gaseous distention of the stomach. There is large amount of bowel gas present . No obvious bowel mass. APPENDIX: Not identified. ABDOMINAL WALL: No hernia or masses. PERITONEAL CAVITY: No free air. No free fluid. No peritoneal implants or masses. PELVIS: No mass or free fluid. Normal bladder. BONES: Posterior rods at L4-5. No acute osseous finding. OTHER: No other significant finding. IMPRESSION: There is significant gaseous distention of the stomach. There is large amount of bowel gas. There is no free air. There is cholelithiasis. No acute finding in the abdomen or pelvis. TECHNICAL DOCUMENTATION: JOB ID: [id number] Quality ID # [id number]: Final reports with documentation of one or more dose reduction techniques (e.g., Au tomated exposure control, adjustment of the mA and/or kV according to patient size, use of iterative reconstruction technique) 2010 [employer]- All Rights Reserved Reading location - IP/workstation name: [email or web address]
[2018-10-26 21:03] VITALS: BP 158/87
== END 2018-10-26 22:27 | disposition home or self-care (01) ==
LOC: ER 17:11
DX: K80.80 Other cholelithiasis without obstruction (principal); F10.20 Alcohol dependence, uncomplicated; R14.0 Abdominal distension (gaseous); R07.9 Chest pain, unspecified; F17.210 Nicotine dependence, cigarettes, uncomplicated; I48.91 Unspecified atrial fibrillation; I11.0 Hypertensive heart disease with heart failure; I50.9 Heart failure, unspecified; I25.10 Atherosclerotic heart disease of native coronary artery without angina pectoris; I25.2 Old myocardial infarction; Z91.14 Patient's other noncompliance with medication regimen
CPT/HCPCS: 36415; 71045; 71260; 74177; 80053; 80307; 82550; 82553; 83605; 83690; 83880; 84484; 85025; 93005; 93010; 99285

== ENCOUNTER 2018-10-29 21:58 | Emergency (ER) | payer OTHER, MEDICARE ==
[2018-10-29 22:44] LABS: ABSOLUTE BASOPHILS # (AUTO) 0.1 10^3/uL (0.0-0.2); ABSOLUTE EOSINOPHILS # (AUTO) 1.6 10^3/uL (0.0-0.6); ABSOLUTE LYMPHOCYTES (AUTO) 3.1 10^3/uL (0.5-4.7); ABSOLUTE MONOCYTES (AUTO) 0.5 10^3/uL (0.1-1.4); ABSOLUTE NEUT (AUTO) 1.5 10^3/uL (1.7-8.2); BASOPHILS % (AUTO) 1.2 % (0-2); EOSINOPHILS % (AUTO) 22.9 % (0-6); HEMATOCRIT 37.9 % (37.9-51.0); HEMOGLOBIN 13.1 g/dL (13.5-17.0); LYMPHOCYTES % (AUTO) 46.3 % (13-45); MEAN CORPUSCULAR HEMOGLOBIN 32.8 pg (27.0-33.4); MEAN CORPUSCULAR HGB CONC 34.5 g/dL (32.0-36.0); MEAN CORPUSCULAR VOLUME 95 fl (80-97); MONOCYTES % (AUTO) 7.3 % (3-13); PLATELET COUNT 305 10^3/uL (150-450); RED BLOOD COUNT 3.99 10^6/uL (4.35-5.55); RED CELL DISTRIBUTION WIDTH 15.2 % (11.5-14.0); SEGMENTED NEUTROPHILS % (AUTO) 22.3 % (42-78); TOTAL CELLS COUNTED % (AUTO) 100 %; WHITE BLOOD COUNT 6.8 10^3/uL (4.0-10.5)
[2018-10-29 23:25] LABS: ALANINE AMINOTRANSFERASE 70 U/L (21-72); ALBUMIN 4.4 g/dL (3.5-5.0); ALKALINE PHOSPHATASE 91 U/L (38-126); ANION GAP 14 (5-19); ASPARTATE AMINO TRANSFERASE 91 U/L (17-59); BILIRUBIN,DIRECT 0.2 mg/dL (0.0-0.4); BILIRUBIN,TOTAL 0.2 mg/dL (0.2-1.3); BLOOD UREA NITROGEN 5 mg/dL (7-20); CALCIUM 9.2 mg/dL (8.4-10.2); CARBON DIOXIDE 23 mmol/L (22-30); CHLORIDE 107 mmol/L (98-107); CREATINE KINASE 88 U/L (55-170); GLUCOSE 113 mg/dL (75-110); POTASSIUM 4.4 mmol/L (3.6-5.0); SODIUM 144.3 mmol/L (137-145); TOTAL PROTEIN 7.6 g/dL (6.3-8.2)
--- NOTE | 2018-10-29 23:25 | RADIOLOGY REPORT (SQ) ---
CLINICAL HISTORY: chest wall pain COMPARISON: October 26, 2018. TECHNIQUE: XR CHEST 1 VIEW 10/29/2018 10:33 PM CDT FINDINGS: Cardiac silhouette is normal in size. Lungs are hyperinflated due to emphysema. There is no focal consolidation. There is no pleural effusion. There is no pneumothorax. There are no acute osseous findings. IMPRESSION: Emphysema without pneumonia.
[2018-10-29 23:35] LABS: CREATINE KINASE MB 3.62 ng/mL (<4.55)
[2018-10-30 00:35] LABS: TROPONIN I < 0.012 ng/mL
--- NOTE | 2018-10-30 08:37 | EKG REPORT ---
SEVERITY:- NORMAL ECG - SINUS RHYTHM : Confirmed by: Nader Schaefer MD 30-Oct-2018 08:36:50
== END 2018-10-29 23:20 | disposition home or self-care (01) ==
LOC: ER 21:58
DX: Z53.21 Procedure and treatment not carried out due to patient leaving prior to being seen by health care provider (principal)
CPT/HCPCS: 36415; 71045; 80053; 82550; 82553; 84484; 85025; 93005; 93010

== ENCOUNTER 2018-11-02 21:59 | Emergency (ER) | payer MEDICARE, OTHER ==
[2018-11-02] MEDS ORDERED: NITROGLYCERIN 2% OINTMENT 1 GM PACKET TP ONE (22:30)
[2018-11-02 22:31] LABS: ABSOLUTE EOSINOPHILS # (AUTO) 1.7 10^3/uL (0.0-0.6); ABSOLUTE LYMPHOCYTES (AUTO) 3.5 10^3/uL (0.5-4.7); ABSOLUTE MONOCYTES (AUTO) 0.5 10^3/uL (0.1-1.4); ABSOLUTE NEUT (AUTO) 1.7 10^3/uL (1.7-8.2); BASOPHILS % (AUTO) 0.6 % (0-2); EOSINOPHILS % (AUTO) 22.8 % (0-6); HEMATOCRIT 36.8 % (37.9-51.0); HEMOGLOBIN 12.6 g/dL (13.5-17.0); LYMPHOCYTES % (AUTO) 47.2 % (13-45); MEAN CORPUSCULAR HEMOGLOBIN 32.5 pg (27.0-33.4); MEAN CORPUSCULAR HGB CONC 34.3 g/dL (32.0-36.0); MEAN CORPUSCULAR VOLUME 95 fl (80-97); PLATELET COUNT 212 10^3/uL (150-450); RED BLOOD COUNT 3.88 10^6/uL (4.35-5.55); RED CELL DISTRIBUTION WIDTH 14.9 % (11.5-14.0); SEGMENTED NEUTROPHILS % (AUTO) 22.4 % (42-78); TOTAL CELLS COUNTED % (AUTO) 100 %; WHITE BLOOD COUNT 7.4 10^3/uL (4.0-10.5)
[2018-11-02 22:48] LABS: ALANINE AMINOTRANSFERASE 73 U/L (21-72); ALBUMIN 4.3 g/dL (3.5-5.0); ALKALINE PHOSPHATASE 112 U/L (38-126); ANION GAP 12 (5-19); ASPARTATE AMINO TRANSFERASE 120 U/L (17-59); BILIRUBIN,DIRECT 0.3 mg/dL (0.0-0.4); BILIRUBIN,TOTAL 0.4 mg/dL (0.2-1.3); BLOOD UREA NITROGEN 9 mg/dL (7-20); CALCIUM 9.1 mg/dL (8.4-10.2); CARBON DIOXIDE 24 mmol/L (22-30); CHLORIDE 106 mmol/L (98-107); GLUCOSE 100 mg/dL (75-110); SODIUM 141.8 mmol/L (137-145); TOTAL PROTEIN 7.6 g/dL (6.3-8.2)
--- NOTE | 2018-11-02 22:52 | ER Document Report ---
ED General - General Chief Complaint: Chest Pain Stated Complaint: CHEST PAIN Time Seen by Provider: 11/02/18 22:12 Primary Care Provider: VICTOR MANUEL BAL MD [EMERITUS] - Follow up in 3-5 days (tool crib attendant) Notes: Patient is a 68-year-old male with history of hypertension and alcohol abuse that presents to the emergency department for chief complaint of chest pain. Patient apparently was kicked out of a hotel by police, for being intoxicated, and apparently inappropriate. Shortly after leaving the hotel he was walking down the street, and called 911 stating he was having chest pain. He is allergic to aspirin, was given nitro in route which the patient states did seem to help his chest pain. He denies having chest pain at this time. He denies having any shortness of breath, nausea, vomiting or diaphoresis. He reports history of heart attacks, denies any history of PCI, stenting, or CABG. Is not sure the last time he had a stress test. Past Medical History: CAD, hypertension Past Surgical History: Testicle surgery due to trauma Social History: Admits to smoking cigarettes daily, and daily alcohol use, denies illicit drug use. Family History: Reviewed and noncontributory for presenting illness Allergies: Reviewed, see documented allergy list. REVIEW OF SYSTEMS: Other than noted above, the 12 point review of systems was reviewed with the patient and were negative, all pertinent findings are included in the HPI. PHYSICAL EXAMINATION: Vital signs reviewed, nursing noted reviewed. GENERAL: Patient appears clinically intoxicated, slurring words at times, but answering questions appropriately HEAD: Atraumatic, normocephalic. EYES: Eyes appear normal, extraocular movements intact, sclera anicteric, conjunctiva are normal. ENT: nares patent, oropharynx clear without exudates. Moist mucous membranes. NECK: Normal range of motion, supple without lymphadenopathy LUNGS: Breath sounds clear to auscultation bilaterally and equal. No wheezes rales or rhonchi. HEART: Regular rate and rhythm without murmurs ABDOMEN: Soft, nontender, normoactive bowel sounds. No rebound, guarding, or rigidity. No masses appreciated. EXTREMITIES: Nontender, good range of motion, no pitting or edema. NEUROLOGICAL: No focal neurological deficits. Moves all extremities spontaneously Motor and sensory grossly intact on exam. PSYCH: Patient is intoxicated, but answering questions appropriately. SKIN: Warm, Dry, normal turgor, no rashes or lesions noted on exposed skin TRAVEL OUTSIDE OF THE [place] IN LAST 30 DAYS: No - Related Data Allergies/Adverse Reactions: No Known Allergies Allergy (Verified 10/03/18 19:12) Past Medical History - Social History Smoking Status: Current Every Day Smoker Chew tobacco use (# tins/day): No Frequency of alcohol use: Heavy Drug Abuse: None Family History: Reviewed & Not Pertinent Patient has suicidal ideation: No Patient has homicidal ideation: No - Past Medical History Cardiac Medical History: Reports: Hx Atrial Fibrillation, Hx Congestive Heart Failure, Hx Coronary Artery Disease, Hx Heart Attack - x2, Hx Hypertension Pulmonary Medical History: Reports: Hx COPD, Hx Pneumonia Renal/ Medical History: Denies: Hx Peritoneal Dialysis GI Medical History: Reports: Hx Gastroesophageal Reflux Disease, Hx Ulcer Psychiatric Medical History: Denies: Hx Depression Past Surgical History: Reports: Hx Abdominal Surgery, Hx Cardiac Catheterization - Immunizations Immunizations up to date: Yes Hx Pneumococcal Vaccination: 05/24/14 Physical Exam - Vital signs Vitals: Temp 98.9 F 11/02/18 22:34 Course - Re-evaluation Re-evalutation: Patient seen and examined vital signs reviewed. Laboratory data and/or imaging were ordered as appropriate for the patient's presenting symptoms and complaint, with consideration of any critical or life threatening conditions that may be associated with their obtained history and exam as noted above. Patient was treated with IV fluids Results were reviewed when available and demonstrated negative troponin, EKG nonischemic pattern, chest x-ray negative, blood work otherwise unremarkable only mild elevation of LFTs which would be expected in this patient who drinks on a near daily basis. The patient was re-evaluated and was stable, repeat troponin was ordered and was negative. Evaluation was most consistent with chest pain, nonspecific, unlikely cardiac etiology, patient was not having chest pain just prior to being escorted out of a hotel, then he called 911, while walking on the street, stating he had chest pain, although the patient claims is a history, it is unlikely, 2 negative troponins I feel the patient is safe to be discharged home, to follow-up with primary care or cardiology. Is also noted the patient was seen here less than a week ago, with similar complaints, and had a negative work-up at that time as well. Results were discussed with the patient at this point, after careful consideration I feel that that patient can be discharged from the emergency department, the patient was educated treatments and reasons to return to the emergency department based on their presumed diagnosis as noted above, they were advised to followup with a primary care physician in 2-3 days. Patient was agreeable to plan of care. *Note is created using voice recognition software and may contain spelling, syntax or grammatical errors. Laboratory 11/02/18 11/02/18 11/02/18 22:22 22:22 22:22 WBC 7.4 RBC 3.88 L Hgb 12.6 L Hct 36.8 L MCV 95 MCH 32.5 MCHC 34.3 RDW 14.9 H Plt Count 212 Seg Neutrophils % 22.4 L Lymphocytes % 47.2 H Monocytes % 7.0 Eosinophils % 22.8 H Basophils % 0.6 Absolute Neutrophils 1.7 Absolute Lymphocytes 3.5 Absolute Monocytes 0.5 Absolute Eosinophils 1.7 H Absolute Basophils 0.0 Sodium 141.8 Potassium 4.0 Chloride 106 Carbon Dioxide 24 Anion Gap 12 BUN 9 Creatinine 0.62 Est GFR ( Amer) > 60 Est GFR (Non-Af Amer) > 60 Glucose 100 Calcium 9.1 Total Bilirubin 0.4 Direct Bilirubin 0.3 Neonat Total Bilirubin Not Reportable Neonat Direct Bilirubin Not Reportable Neonat Indirect Bili Not Reportable AST 120 H ALT 73 H Alkaline Phosphatase 112 Troponin I < 0.012 Total Protein 7.6 Albumin 4.3 11/03/18 02:11 WBC RBC Hgb Hct MCV MCH MCHC RDW Plt Count Seg Neutrophils % Lymphocytes % Monocytes % Eosinophils % Basophils % Absolute Neutrophils Absolute Lymphocytes Absolute Monocytes Absolute Eosinophils Absolute Basophils Sodium Potassium Chloride Carbon Dioxide Anion Gap BUN Creatinine Est GFR ( Amer) Est GFR (Non-Af Amer) Glucose Calcium Total Bilirubin Direct Bilirubin Neonat Total Bilirubin Neonat Direct Bilirubin Neonat Indirect Bili AST ALT Alkaline Phosphatase Troponin I < 0.012 Total Protein Albumin Chest X-Ray 11/02/18 22:19 IMPRESSION: COPD. Lungs are clear copyright 2010 [employer]- All Rights Reserved - Vital Signs Vital signs: Temp Pulse Resp BP Pulse Ox 98.9 F 11/02/18 22:34 - Laboratory Result Diagrams: 11/02/18 22:22 11/02/18 22:22 Laboratory results interpreted by me: 11/02/18 11/02/18 22:22 22:22 RBC 3.88 L Hgb 12.6 L Hct 36.8 L RDW 14.9 H Seg Neutrophils % 22.4 L Lymphocytes % 47.2 H Eosinophils % 22.8 H Absolute Eosinophils 1.7 H AST 120 H ALT 73 H - EKG Interpretation by Me Additional EKG results interpreted by me: EKG demonstrates sinus rhythm with a ventricular rate of 91 bpm, normal axis, QTC 483 ms, no evidence of acute ischemia in this EKG, no ST elevation, this is compared with the prior EKG from 10/29/2018, without significant change. Discharge - Discharge Clinical Impression: Chest pain Qualifiers: Chest pain type: unspecified Qualified Code(s): R07.9 - Chest pain, unspecified Alcohol intoxication Qualifiers: Complication of substance-induced condition: uncomplicated Qualified Code(s): F10.920 - Alcohol use, unspecified with intoxication, uncomplicated Condition: Stable Disposition: HOME, SELF-CARE Instructions: Chest Pain of Unclear Cause ([facility]) Additional Instructions: Please follow-up with your primary care physician, and tool crib attendant, these are given your discharge paperwork, if you do not have them in the area. Please return to the emergency department if you have any worsening, or concern of your symptoms. Please return to the emergency department if you develop chest pain, difficulty breathing, severe abdominal pain, or ongoing vomiting. Please follow-up with your primary care physician in 2-3 days and any other recommended physicians. If prescribed, take all medications as directed. If you have any questions or concerns do not hesitate to return the emergency department for evaluation. Referrals: VICTOR MANUEL BAL MD [EMERITUS] - Follow up in 3-5 days (tool crib attendant)
--- NOTE | 2018-11-02 23:09 | RADIOLOGY REPORT (SQ) ---
EXAM DESCRIPTION: XR CHEST 1 VIEW COMPLETED DATE/TME: 11/02/2018 22:19 CLINICAL HISTORY: 68 years, Male, CHEST PAIN COMPARISON: 10/29/2018 chest NUMBER OF VIEWS: 1 TECHNIQUE: Portable chest LIMITATIONS: None. FINDINGS: The heart size is normal. Osteopenia. COPD. Mild atheromatous change thoracic aorta. Lungs clear. No pneumothorax IMPRESSION: COPD. Lungs are clear copyright 2010 [employer]- All Rights Reserved
[2018-11-03 04:10] VITALS: BP 133/94
--- NOTE | 2018-11-03 08:02 | EKG REPORT ---
SEVERITY:- BORDERLINE ECG - SINUS RHYTHM BORDERLINE PROLONGED QT INTERVAL : Confirmed by: Nader Schaefer MD 03-Nov-2018 08:01:30
== END 2018-11-03 04:21 | disposition home or self-care (01) ==
LOC: ER 21:59
DX: R07.9 Chest pain, unspecified (principal); F10.120 Alcohol abuse with intoxication, uncomplicated; R79.89 Other specified abnormal findings of blood chemistry; I10 Essential (primary) hypertension; I25.10 Atherosclerotic heart disease of native coronary artery without angina pectoris; I25.2 Old myocardial infarction; F17.210 Nicotine dependence, cigarettes, uncomplicated; J44.9 Chronic obstructive pulmonary disease, unspecified; Z88.8 Allergy status to other drugs, medicaments and biological substances; Z87.01 Personal history of pneumonia (recurrent)
CPT/HCPCS: 36415; 71045; 80053; 84484; 85025; 93005; 93010; 99285